=== PATIENT | male | born 1990 | race Caucasian/White ===

== ENCOUNTER 2017-12-10 15:04 | Emergency (ER) | payer MEDICAID ==
[~2017-12-10] VITALS: Ht 182.9 cm; Wt 111.4 kg
[2017-12-10 15:38] VITALS: BP 132/91
== END 2017-12-10 15:47 ==
LOC: ER 15:05
DX: Z02.89 Encounter for other administrative examinations (principal); M79.651 Pain in right thigh; F15.10 Other stimulant abuse, uncomplicated; F17.200 Nicotine dependence, unspecified, uncomplicated
CPT/HCPCS: 99283

== ENCOUNTER 2018-06-01 15:49 | Emergency (ER) | payer MEDICAID ==
[~2018-06-01] VITALS: Ht 180.3 cm; Wt 95.0 kg
[2018-06-01] MEDS ORDERED: fentaNYL/PF 50MCG/1 ML 2ML syringe IV ONE (16:00)
[2018-06-01] MEDS ORDERED: ondansetron/PF 4mg/2ml inj IV ONE (16:00)
[2018-06-01] MEDS ORDERED: normal saline 1000ML IV soln IVB ONE (16:25)
[2018-06-01] MEDS ORDERED: propofol (Diprivan) 10mg/ml 100ml bottle IV ONE (16:25)
[2018-06-01] MEDS ORDERED: HYDR-565 PO (16:28)
[2018-06-01 18:00] VITALS: BP 131/85
== END 2018-06-01 18:12 | disposition home or self-care (01) ==
LOC: ER 15:50
DX: S43.085A Other dislocation of left shoulder joint, initial encounter (principal); F15.90 Other stimulant use, unspecified, uncomplicated; Z88.0 Allergy status to penicillin; Z79.899 Other long term (current) drug therapy; W51.XXXA Accidental striking against or bumped into by another person, initial encounter; Y93.72 Activity, wrestling; Y92.89 Other specified places as the place of occurrence of the external cause; Y99.8 Other external cause status
CPT/HCPCS: 23650; 73020; 73030; 96374; 96375; 99152; 99153; 99285; J2405; J2704; J3010; J7030; L3650

== ENCOUNTER 2018-08-02 19:10 | Emergency (ER) | payer MEDICAID ==
[~2018-08-02] VITALS: Ht 180.3 cm; Wt 122.0 kg
[2018-08-02] MEDS ORDERED: propofol 10mg/ml 20ml vial IV ONE (20:30)
[2018-08-02] MEDS ORDERED: normal saline 1000ML IV soln IVB ONE (20:30)
[2018-08-02 21:58] VITALS: BP 137/87
== END 2018-08-02 21:59 | disposition home or self-care (01) ==
LOC: ER 19:11
DX: S43.085A Other dislocation of left shoulder joint, initial encounter (principal); F15.90 Other stimulant use, unspecified, uncomplicated; Z88.0 Allergy status to penicillin; Z88.1 Allergy status to other antibiotic agents; X50.1XXA Overexertion from prolonged static or awkward postures, initial encounter; Y93.89 Activity, other specified; Y92.89 Other specified places as the place of occurrence of the external cause; Y99.9 Unspecified external cause status
CPT/HCPCS: 23650; 73030; 99285; A4565; J2704

== ENCOUNTER 2019-02-28 23:06 | Emergency (ER) | payer MEDICAID ==
[~2019-02-28] VITALS: Ht 180.3 cm; Wt 85.5 kg
[2019-02-28 23:10] VITALS: BP 140/95
[2019-03-01] MEDS ORDERED: acetaminophen w/codeine (30MG) #3 tablet PO ONE (00:20)
[2019-03-01] MEDS ORDERED: ACET-3067 PO (00:23)
[2019-03-01] MEDS ORDERED: AZIT-72 PO (00:23)
== END 2019-03-01 00:41 | disposition home or self-care (01) ==
LOC: ER 23:07
DX: H66.90 Otitis media, unspecified, unspecified ear (principal); F15.90 Other stimulant use, unspecified, uncomplicated; Z88.0 Allergy status to penicillin; Z88.1 Allergy status to other antibiotic agents
CPT/HCPCS: 99283

== ENCOUNTER 2019-05-04 15:48 | Emergency (ER) | payer MEDICAID ==
[~2019-05-04] VITALS: Ht 180.3 cm; Wt 107.6 kg
[2019-05-04 15:56] VITALS: BP 134/86
[2019-05-04] MEDS ORDERED: CIPR-230 PO (16:04)
== END 2019-05-04 16:22 | disposition home or self-care (01) ==
LOC: ER 15:48
DX: H72.91 Unspecified perforation of tympanic membrane, right ear (principal); F15.90 Other stimulant use, unspecified, uncomplicated; F17.210 Nicotine dependence, cigarettes, uncomplicated; Z88.0 Allergy status to penicillin; Z88.1 Allergy status to other antibiotic agents; Z79.899 Other long term (current) drug therapy
CPT/HCPCS: 99283

== ENCOUNTER 2019-06-30 17:43 | Emergency (ER) | payer MEDICAID ==
[~2019-06-30] VITALS: Ht 180.3 cm; Wt 104.5 kg
[~2019-06-30 17:43] MED LIST: HYDR-4383 PO
[2019-06-30 17:51] VITALS: BP 143/95
[2019-06-30] MEDS ORDERED: CEPH250T PO (18:11)
[2019-06-30] MEDS ORDERED: NAPR-56 PO (18:11)
[2019-06-30] MEDS ORDERED: LIDO20SO16 PO (18:11)
[2019-07-01] MEDS ORDERED: HYDR-3965 PO (23:17)
== END 2019-06-30 18:23 | disposition home or self-care (01) ==
LOC: ER 17:43
DX: J02.0 Streptococcal pharyngitis (principal); B95.5 Unspecified streptococcus as the cause of diseases classified elsewhere; F15.90 Other stimulant use, unspecified, uncomplicated; Z88.0 Allergy status to penicillin; Z88.1 Allergy status to other antibiotic agents; Z79.899 Other long term (current) drug therapy
CPT/HCPCS: 99283

== ENCOUNTER 2019-07-01 21:06 | Emergency (ER) | payer MEDICAID ==
[~2019-07-01] VITALS: Ht 180.3 cm; Wt 106.0 kg
[~2019-07-01 21:06] MED LIST changes: +CEPH250T PO; +LIDO20SO16 PO; +NAPR-56 PO
[2019-07-01] MEDS ORDERED: LIDOcaine Viscous 15ml cup MM PRN (21:25)
--- NOTE | 2019-07-01 21:26 | NUR ---
DR ABAD AT BEDSIDE WITH PT
[2019-07-01] MEDS ORDERED: ketorolac trometh. 30mg/ml inj. IV ONE (21:55)
[2019-07-01] MEDS ORDERED: normal saline 1000ML IV soln IV ONE (21:55)
--- NOTE | 2019-07-01 22:12 | NUR ---
LAB AT BEDSIDE TO DRAW 2ND SET OF CULTURES.
[2019-07-01 22:16] LABS: BASOPHILS # (AUTO) 0.1 X10'3 (0-0.2); BASOPHILS % (AUTO) 0.5 % (0-1); EOSINOPHILS # (AUTO) 0.1 X10'3 (0-0.9); EOSINOPHILS % (AUTO) 0.4 % (0-6); HEMOGLOBIN 15.4 g/dl (14.0-17.9); LYMPHOCYTES # (AUTO) 2.4 X10'3 (1.1-4.8); LYMPHOCYTES % (AUTO) 17.7 % (21-51); MEAN CORPUSCULAR HEMOGLOBIN 28.9 PG (27.0-31.0); MEAN CORPUSCULAR HGB CONC 34.2 g/dL (33.0-36.5); MEAN CORPUSCULAR VOLUME 84.3 FL (78-98); MEAN PLATELET VOLUME 8.7 FL (7.4-10.4); MONOCYTES # (AUTO) 1.5 X10'3 (0-0.9); MONOCYTES % (AUTO) 10.8 % (2-12); NEUTROPHILS # (AUTO) 9.8 X10'3 (1.8-7.7); NEUTROPHILS % (AUTO) 70.6 % (42-75); PLATELET COUNT 263 X10'3 (140-440); RED BLOOD COUNT 5.34 X10'6 (4.70-6.10); RED CELL DISTRIBUTION WIDTH 13.8 % (11.5-14.5); WHITE BLOOD COUNT 13.8 X10'3 (4.5-11.0)
[2019-07-01] MEDS ORDERED: clindamycin phosphate inj 600 MG in normal saline 50ml IV soln 50 ML IV ONE (22:25)
[2019-07-01] MEDS ORDERED: clindamycin 600mg/D5W 50ml 50 ML IV ONE (22:27)
[2019-07-01 22:30] LABS: ALANINE AMINOTRANSFERASE 61 U/L (12-78); ALBUMIN 3.8 G/DL (3.4-5.0); ALKALINE PHOSPHATASE 95 IU/L (46-116); ANION GAP 10 (8-16); ASPARTATE AMINO TRANSFERASE 17 U/L (10-37); BILIRUBIN,TOTAL 0.6 MG/DL (0.1-1.0); BLOOD UREA NITROGEN 12 MG/DL (7-18); BUN/CREATININE RATIO 12.1 (5.4-32.0); CHLORIDE 104 MMOL/L (99-107); CREATININE 0.99 MG/DL (0.60-1.10); GLUCOSE 102 MG/DL (70-104); MAGNESIUM 1.8 MG/DL (1.5-2.4); POTASSIUM 3.7 MMOL/L (3.5-5.1); SODIUM 137 MMOL/L (135-145); TOTAL CARBON DIOXIDE 23.2 MMOL/L (24-32); TOTAL PROTEIN 7.8 G/DL (6.4-8.2); eGFR 90 ML/MIN
[2019-07-01 22:33] LABS: PARTIAL THROMBOPLASTIN TIME 32 SECONDS (22-32)
[2019-07-01] MEDS ORDERED: ondansetron/PF 4mg/2ml inj IV ONE (23:15)
[2019-07-01] MEDS ORDERED: morphine 4 MG/ML inj SYRINge IV ONE (23:15)
[2019-07-01] MEDS ORDERED: HYDR-3965 PO (23:17)
[2019-07-01] MEDS ORDERED: acetaminophen 325mg tablet PO ONE (23:20)
[2019-07-01] MEDS ORDERED: dexamethasone 4mg/ml inj IV ONE (23:20)
[2019-07-01 23:57] VITALS: BP 131/79
== END 2019-07-02 00:17 | disposition home or self-care (01) ==
LOC: ER 21:07
DX: J02.0 Streptococcal pharyngitis (principal); F15.90 Other stimulant use, unspecified, uncomplicated; Z88.0 Allergy status to penicillin; Z88.1 Allergy status to other antibiotic agents; Z79.2 Long term (current) use of antibiotics; Z79.899 Other long term (current) drug therapy
CPT/HCPCS: 36415; 71045; 80053; 83605; 83735; 84145; 85025; 85610; 85730; 87040; 96365; 96375; 99284; J1100; J1885; J2270; J2405; J7030; 93005; J3490

== ENCOUNTER 2019-07-17 12:06 | Emergency (ER) | payer MEDICAID ==
[~2019-07-17] VITALS: Ht 177.8 cm; Wt 105.4 kg
[~2019-07-17 12:06] MED LIST changes: -CEPH250T PO; +HYDR-3965 PO
[2019-07-17 12:28] VITALS: BP 140/76
[2019-07-17] MEDS ORDERED: DIPH-518 PO (12:55)
[2019-07-17] MEDS ORDERED: diphenhydrAMINE 25 MG/10 ML UD oral solution PO ONE (12:55)
== END 2019-07-17 13:16 | disposition home or self-care (01) ==
LOC: ER 12:07
DX: J02.9 Acute pharyngitis, unspecified (principal); F17.299 Nicotine dependence, other tobacco product, with unspecified nicotine-induced disorders; F15.90 Other stimulant use, unspecified, uncomplicated; Z88.0 Allergy status to penicillin; Z88.1 Allergy status to other antibiotic agents; Z79.899 Other long term (current) drug therapy
CPT/HCPCS: 99282; 99406; Q0163

== ENCOUNTER 2019-10-12 09:50 | Emergency (ER) | payer MEDICAID ==
[~2019-10-12] VITALS: Ht 188 cm; Wt 90.0 kg
[~2019-10-12 09:50] MED LIST changes: +DIPH-518 PO; -HYDR-3965 PO; -NAPR-56 PO
[2019-10-12 10:13] VITALS: BP 134/82
[2019-10-12] MEDS ORDERED: ketorolac trometh inj. 60 MG/2 ML VIAL IM ONE (10:35)
[2019-10-12] MEDS ORDERED: acetaminophen 325mg tablet PO ONE (10:35)
[2019-10-12] MEDS ORDERED: TAM75C PO (10:37)
== END 2019-10-12 10:55 | disposition home or self-care (01) ==
LOC: ER 09:51
DX: J02.9 Acute pharyngitis, unspecified (principal); R50.9 Fever, unspecified; R51 Headache; R09.81 Nasal congestion; R05 Cough; F15.90 Other stimulant use, unspecified, uncomplicated; Z88.0 Allergy status to penicillin; Z88.1 Allergy status to other antibiotic agents; Z79.899 Other long term (current) drug therapy
CPT/HCPCS: 96372; 99283; J1885

== ENCOUNTER 2019-12-13 12:38 | Emergency (ER) | payer MEDICAID ==
[~2019-12-13] VITALS: Ht 180.3 cm; Wt 100.0 kg
[2019-12-13 12:50] VITALS: BP 119/86
== END 2019-12-13 13:44 | disposition home or self-care (01) ==
LOC: ER 12:39
DX: M79.645 Pain in left finger(s) (principal); F15.90 Other stimulant use, unspecified, uncomplicated; Z88.0 Allergy status to penicillin; Z88.1 Allergy status to other antibiotic agents; Z79.899 Other long term (current) drug therapy; X50.1XXA Overexertion from prolonged static or awkward postures, initial encounter; Y93.89 Activity, other specified; Y92.89 Other specified places as the place of occurrence of the external cause; Y99.8 Other external cause status
CPT/HCPCS: 29130; 73140; 99283

== ENCOUNTER 2019-12-19 07:34 | Emergency (ER) | payer MEDICAID ==
[~2019-12-19] VITALS: Ht 180.3 cm; Wt 104.5 kg
[2019-12-19] MEDS ORDERED: propofol 1000mg/100ml bottle 100 ML IV ONE (08:35)
[2019-12-19] MEDS ORDERED: propofol 10mg/ml 20ml vial IV ONE (08:55)
[2019-12-19 10:09] VITALS: BP 125/92
== END 2019-12-19 10:11 | disposition home or self-care (01) ==
LOC: ER 07:34
DX: S43.015A Anterior dislocation of left humerus, initial encounter (principal); F15.90 Other stimulant use, unspecified, uncomplicated; Z88.0 Allergy status to penicillin; Z88.1 Allergy status to other antibiotic agents; X50.1XXA Overexertion from prolonged static or awkward postures, initial encounter; Y93.89 Activity, other specified; Y92.89 Other specified places as the place of occurrence of the external cause; Y99.9 Unspecified external cause status
CPT/HCPCS: 23650; 73020; 73030; 99285; J2704; 94760

== ENCOUNTER 2020-06-25 12:10 | Emergency (ER) | payer MEDICAID, OTHER ==
[~2020-06-25] VITALS: Ht 180.3 cm; Wt 108.6 kg
[2020-06-25 12:13] VITALS: BP 149/99
[2020-06-25] MEDS ORDERED: dexamethasone sod phosphate 10mg/ml inj IM STA (12:26)
[2020-06-25] MEDS ORDERED: PRED20TA PO (12:29)
[2020-06-25] MEDS ORDERED: CEPH250T PO (12:29)
== END 2020-06-25 12:53 | disposition home or self-care (01) ==
LOC: ER 12:11
DX: K12.2 Cellulitis and abscess of mouth (principal); F15.90 Other stimulant use, unspecified, uncomplicated; Z88.5 Allergy status to narcotic agent; Z88.0 Allergy status to penicillin; Z79.899 Other long term (current) drug therapy
CPT/HCPCS: 96372; 99283; J1100

== ENCOUNTER 2020-08-30 13:57 | Emergency (ER) | payer MEDICAID, OTHER ==
[~2020-08-30] VITALS: Ht 182.9 cm; Wt 109.1 kg
[2020-08-30 14:15] VITALS: BP 156/88
[2020-08-30] MEDS ORDERED: TETanus/Pertussis (Acell)/Diphther VAC/PF (Tdap-Adult) 0.5ml syringe IMVAC ONE (14:40)
[2020-08-30] MEDS ORDERED: LIDOcaine 1% W/epiNEPHrine 1:200,000 10ml vial IJ ONE (14:40)
[2020-08-30] MEDS ORDERED: LIDOcaine 1% w/epiNEPHrine 1:200,000 30ml vial IJ ONE (14:50)
[2020-08-30] MEDS ORDERED: CEPH250T PO (14:57)
== END 2020-08-30 15:39 | disposition home or self-care (01) ==
LOC: ER 13:58
DX: S61.412A Laceration without foreign body of left hand, initial encounter (principal); F15.90 Other stimulant use, unspecified, uncomplicated; Z88.0 Allergy status to penicillin; Z79.2 Long term (current) use of antibiotics; Z79.899 Other long term (current) drug therapy; W45.8XXA Other foreign body or object entering through skin, initial encounter; Y93.89 Activity, other specified; Y92.89 Other specified places as the place of occurrence of the external cause; Y99.0 Civilian activity done for income or pay
CPT/HCPCS: 12001; 90471; 90715; 99283

== ENCOUNTER 2020-08-31 16:28 | Emergency (ER) | payer OTHER ==
[~2020-08-31] VITALS: Ht 177.8 cm; Wt 110.0 kg
[~2020-08-31 16:28] MED LIST changes: +CEPH250T PO
[2020-08-31 16:45] VITALS: BP 156/91
== END 2020-08-31 17:03 | disposition home or self-care (01) ==
LOC: ER 16:30
DX: S61.412D Laceration without foreign body of left hand, subsequent encounter (principal); F15.90 Other stimulant use, unspecified, uncomplicated; Z88.0 Allergy status to penicillin; Z88.1 Allergy status to other antibiotic agents; Z79.2 Long term (current) use of antibiotics; Z79.899 Other long term (current) drug therapy; X58.XXXD Exposure to other specified factors, subsequent encounter
CPT/HCPCS: 99281

== ENCOUNTER 2021-03-28 17:16 | Emergency (ER) | payer MEDICAID, OTHER ==
[~2021-03-28] VITALS: Ht 180.3 cm; Wt 111.4 kg
[~2021-03-28 17:16] MED LIST changes: -CEPH250T PO
[2021-03-28] MEDS ORDERED: rabies vaccine (PCEC)/PF 2.5 unit kit IMVAC ONE (18:50)
[2021-03-28] MEDS ORDERED: rabies immune globulin/PF 150 unit/ml inj IMVAC ONE (18:50)
[2021-03-28 20:27] VITALS: BP 128/94
== END 2021-03-28 20:30 | disposition home or self-care (01) ==
LOC: ER 17:17
DX: S30.1XXA Contusion of abdominal wall, initial encounter (principal); S60.410A Abrasion of right index finger, initial encounter; F15.90 Other stimulant use, unspecified, uncomplicated; Z88.0 Allergy status to penicillin; Z88.1 Allergy status to other antibiotic agents; Z79.899 Other long term (current) drug therapy; W54.0XXA Bitten by dog, initial encounter; Y93.01 Activity, walking, marching and hiking; Y92.89 Other specified places as the place of occurrence of the external cause; Y99.8 Other external cause status
CPT/HCPCS: 90375; 90471; 90675; 96372; 99284

== ENCOUNTER 2021-04-04 08:32 | Emergency (ER) | payer MEDICAID ==
[~2021-04-04] VITALS: Ht 177.8 cm; Wt 109.2 kg
[2021-04-04 08:38] VITALS: BP 118/86
[2021-04-04] MEDS ORDERED: rabies vaccine (PCEC)/PF 2.5 unit kit IMVAC ONE (09:50)
== END 2021-04-04 10:04 | disposition home or self-care (01) ==
LOC: ER 08:33
DX: Z23 Encounter for immunization (principal); F15.90 Other stimulant use, unspecified, uncomplicated; Z20.3 Contact with and (suspected) exposure to rabies; Z88.0 Allergy status to penicillin; Z88.1 Allergy status to other antibiotic agents; Z79.899 Other long term (current) drug therapy
CPT/HCPCS: 90471; 90675; 99281

== ENCOUNTER 2021-04-11 07:36 | Emergency (ER) | payer MEDICAID ==
[~2021-04-11] VITALS: Ht 177.8 cm; Wt 109.1 kg
[2021-04-11 07:41] VITALS: BP 132/98
[2021-04-11] MEDS ORDERED: rabies vaccine (PCEC)/PF 2.5 unit kit IMVAC ONE (07:50)
== END 2021-04-11 08:02 | disposition home or self-care (01) ==
LOC: ER 07:37
DX: S30.811D Abrasion of abdominal wall, subsequent encounter (principal); F15.90 Other stimulant use, unspecified, uncomplicated; Z23 Encounter for immunization; Z88.0 Allergy status to penicillin; Z88.1 Allergy status to other antibiotic agents; Z79.899 Other long term (current) drug therapy; W54.0XXD Bitten by dog, subsequent encounter
CPT/HCPCS: 90471; 90675; 99281

== ENCOUNTER 2023-03-17 07:34 | Emergency (ER) | payer MEDICAID ==
[~2023-03-17] VITALS: Ht 182.9 cm; Wt 103.0 kg
[2023-03-17] MEDS ORDERED: fentaNYL/PF 50MCG/1 ML 2ML syringe IV ONE (08:30)
--- NOTE | 2023-03-17 10:22 | NUR ---
report given to shadow cytology supervisor assuming care at present time aware of elevated pain level
[2023-03-17] MEDS ORDERED: propofol 10mg/ml 20ml vial IV ONE (10:35)
[2023-03-17 11:38] VITALS: BP 114/79
== END 2023-03-17 11:44 | disposition home or self-care (01) ==
LOC: ER 07:34
DX: S43.085A Other dislocation of left shoulder joint, initial encounter (principal); F12.10 Cannabis abuse, uncomplicated; Z88.0 Allergy status to penicillin; Z88.1 Allergy status to other antibiotic agents; Z79.899 Other long term (current) drug therapy; X58.XXXA Exposure to other specified factors, initial encounter; Y93.89 Activity, other specified; Y92.89 Other specified places as the place of occurrence of the external cause; Y99.8 Other external cause status
CPT/HCPCS: 23650; 73020; 73030; 96374; 99152; 99285; J3010; J7030; A4565; A4615; A4620

== ENCOUNTER 2024-06-14 14:56 | Emergency (ER) | payer MEDICAID ==
[~2024-06-14] VITALS: Ht 180.3 cm; Wt 89.3 kg
[2024-06-14 15:08] VITALS: BP 139/89; PULSE 81; RESP 18; TEMP 98.6; O2SAT 99
[2024-06-14] MEDS ORDERED: NEOM10SO7 LEFT EAR (16:15)
== END 2024-06-14 17:07 | disposition home or self-care (01) ==
LOC: ER 14:57
DX: H61.22 Impacted cerumen, left ear (principal); F15.90 Other stimulant use, unspecified, uncomplicated; Z88.0 Allergy status to penicillin; Z88.1 Allergy status to other antibiotic agents; Z79.899 Other long term (current) drug therapy
CPT/HCPCS: 69209; 99283